=== PATIENT | female | born 2000 | race Caucasian/White ===

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

== ENCOUNTER 2019-02-17 08:23 | Inpatient (IN) | payer OTHER ==
[~2019-02-17] VITALS: Ht 165.1 cm; Wt 108.2 kg
--- NOTE | ~2019-02-17 | PR ---
[place], [place] PROGRESS NOTE NAME: ONEAL MENON UNIT #: [id number] ROOM: 519 DOCTOR: SHITAL GREY MD BIRTHDATE: [birth year] DOS: 02/19/2019 CARDIOLOGY PROGRESS NOTE REASON FOR VISIT: Sinus tachycardia and severe dyslipidemia. SUBJECTIVE: The patient is feeling better. Abdominal pain is better. Nausea is better. Denies any chest pain or palpitations. No PND, no orthopnea. No palpitations or dizziness. No neurologic symptoms. No bladder or bowel symptoms. REVIEW OF SYSTEMS: Review of the 8 systems negative except as mentioned above. RHYTHM STRIP: The patient is in sinus rhythm. No tachyarrhythmias. PHYSICAL EXAMINATION: VITAL SIGNS: Blood pressure 128/62, pulse 91, respiratory rate 16, weight 108 kg. GENERAL: The patient is alert, awake, in no acute distress. HEAD: Pupils are round and equal. No jaundice. NECK: Supple, no distended neck veins, no carotid bruit. CHEST: Symmetrical, nontender. LUNGS: Clear to auscultation bilaterally. HEART: Regular rhythm, no S3. No palpable thrills. ABDOMEN: Obese, nontender. Bowel sounds normal. EXTREMITIES: Showed nonpitting edema. Distal pulses palpable. SKIN: Warm and dry. No cyanosis, no clubbing. RECTAL: Deferred. NEUROLOGIC: The patient is alert with no focal neurologic deficit. REVIEW OF DIAGNOSTIC TESTS: Rhythm strips and labs reviewed. A 2D echo showed normal LV function, mild LV hypertrophy, EF 63%. IMPRESSION: 1. Mild sinus tachycardia, resolved. 2. Acute pancreatitis. 3. Severe dyslipidemia, hypertriglyceridemia, and also hypercholesterolemia. 4. Non-morbid obesity. 5. Gallstones. RECOMMENDATIONS: 1. Cardiology will sign off. 2. Again patient advised to see loan manager on an outpatient basis. 3. Discharge modification for diet, exercise, weight loss discussed. 4. Above recommendation discussed with the patient and her mom who is at bedside and all questions are answered. [place], [place] PROGRESS NOTE NAME: ONEAL MENON UNIT #: [id number] ROOM: 519 DOCTOR: SHITAL GREY MD BIRTHDATE: [birth year] SHITAL GREY MD CM:VINNY [id number] SHITAL GREY MD 02/20/19 0305 interface
--- NOTE | ~2019-02-17 | CON ---
[place], [place] REPORT OF CONSULTATION NAME: ONEAL MENON UNIT #: [id number] ROOM: 519 DOCTOR: CELESTINA SANTIAGO MD BIRTHDATE: [birth year] DOS: 02/19/2019 HISTORY OF PRESENT ILLNESS: A 18-year-old who has been found to have extreme hypertriglyceridemia and as a result pancreatitis. PAST MEDICAL HISTORY: Diabetes, morbid obesity, poor dietary habit. PAST SURGICAL HISTORY: None. FAMILY HISTORY: Noncontributory. SOCIAL HISTORY: Nonsmoker, nonalcohol consumer. ALLERGIES: Reviewed. MEDICATIONS: Reviewed. The patient has been started on Lopid 600 mg b.i.d. REVIEW OF SYSTEMS: HEENT: Denies double vision, blurred vision. RESPIRATORY: Denies shortness of breath. CARDIOVASCULAR: Denies chest pain. DIGESTIVE SYSTEM: Abdominal pain. PHYSICAL EXAMINATION: GENERAL: Obese patient for her age of 18, poor dietary habits. HEENT: Benign, otherwise. NECK: Supple, no thyromegaly. CHEST: Symmetric anatomy, equal expansion. HEART: Normal sinus rhythm, no gallop, no murmur. ABDOMEN: Soft. No hepato-organomegaly, obese. Bowel sounds present. EXTREMITIES: No cyanosis, no pedal edema. NEUROLOGIC: Alert and oriented to time, place, person. IMPRESSION: Pancreatitis secondary to most likely genetical disorder, extreme hypertriglyceridemia. PLAN: The patient needs to follow up with cathode ray tube assembler. I have advised her to abstain entirely from alcoholic beverages, nicotine products and greasy food and hopefully she will be following with her cathode ray tube assembler. At the present time, Lopid 600 mg b.i.d. as well as hydration. [place], [place] REPORT OF CONSULTATION NAME: ONEAL MENON UNIT #: [id number] ROOM: 519 DOCTOR: CELESTINA SANTIAGO MD BIRTHDATE: [birth year] CELESTINA SANTIAGO MD CM:CONSTR:REPORT OF CONSULTATION 58 02/20/19 8499 interface
--- NOTE | ~2019-02-17 | WRIGHTHP ---
[place], [place] PATIENT HISTORY AND PHYSICAL EXAM NAME: ONEAL MENON [facility] #: [id number] UNIT #: [id number] ROOM: [facility] DOCTOR: IRON PADILLA MD BIRTHDATE: [birth year] DOS: 02/17/2019 HISTORY OF PRESENT ILLNESS: The patient is a 18-year-old female with a past medical history of: 1. Morbid obesity with a BMI of 39.6. 2. Moderate protein calorie malnutrition. 3. Newly discovered type 2 diabetes mellitus. 4. Possible familial severe hyperlipidemia. The patient presented to the Emergency Department with complaints of severe upper abdominal pain starting last night and 2 episodes of vomiting. The patient's lipase level was elevated and she was found to have severe mixed type hyperlipidemia. No chest pain or shortness of breath, no GI or urinary symptoms otherwise. REVIEW OF SYSTEMS RESPIRATORY: No increased shortness of breath. GASTROINTESTINAL: Recurrent vomiting. CARDIOVASCULAR: No chest pain or palpitations. ALLERGIES: No known drug allergies. FAMILY HISTORY: Noncontributory. MEDICATIONS: The patient is not taking any medications at home. PHYSICAL EXAMINATION: GENERAL: The patient is morbidly obese, in no visible distress, morbid obesity. VITAL SIGNS: Blood pressure 139/84, heart rate ranging between 109- 123 beats per minute, temperature 98.2 degrees Fahrenheit. HEENT AND NECK: Exam within normal limits. CARDIOVASCULAR SYSTEM: Heart rate is regular in rate and rhythm. S1 and S2 normally audible. LUNGS: Clear to auscultation. ABDOMEN: Epigastric tenderness, no rigidity, guarding or rebound tenderness. EXTREMITIES: Without significant cyanosis or edema. LABORATORY DATA: CT scan of the abdomen and pelvis showing acute pancreatitis inflammation around the head of the pancreas. IMPRESSION: 1. Acute pancreatitis with elevation of lipase and CAT scan showing inflammation on the head of the pancreas. The patient is to be hydrated with normal saline. Dr. Fabian, the application penetration tester has been consulted to follow. I will repeat her lipase levels and amylase levels every morning. The patient's acute pancreatitis is probably secondary to severe hypertriglyceridemia. 2. Severe hypertriglyceridemia with level of 8223, being treated with Crestor as recommended. I have also consulted Cardiology to follow. 3. Severe mixed type hyperlipidemia, possibly familial with a cholesterol level of 762, triglycerides elevated above 8000, being treated with Crestor. [place], [place] PATIENT HISTORY AND PHYSICAL EXAM NAME: ONEAL MENON UNIT #: [id number] ROOM: [facility] DOCTOR: IRON PADLILA MD BIRTHDATE: [birth year] 4. Type 2 diabetes mellitus with blood sugar of 376, to be treated with insulin sliding scale. 5. Morbid obesity with a BMI of 39.6. The patient is to be followed by Dietary. IRON PADILLA MD CM:HISPHYS:PATIENT HISTORY AND PHYSICAL EXAMINATION 45 [phone] IRON PADILLA MD 02/17/191938 interface
--- NOTE | ~2019-02-17 | DS ---
[place], [place] DISCHARGE SUMMARY NAME: ONEAL MENON UNIT #: [id number] ROOM: 519 DOCTOR: IRON PADILLA MD BIRTHDATE: [birth year] DOS: 02/20/2019 DISCHARGE DIAGNOSES: 1. Morbid obesity. 2. Severe mixed hyperlipidemia, possibly familial. The patient to follow up with Dr. Gutierrez. 3. Acute pancreatitis secondary to hypertriglyceridemia. 4. Cholelithiasis. 5. Moderate protein-calorie malnutrition. 6. Type 2 diabetes mellitus. HOSPITAL COURSE: The patient presented to the Emergency Department with severe abdominal pains and was found to have acute pancreatitis and severe hypertriglyceridemia. The patient admitted and treated with Lopid and Crestor and kept n.p.o. and hydrated with normal saline. Pancreatic amylase has come down to normal and abdominal pains have completely resolved. The patient's nausea and vomiting has also resolved and she was seen by Gastroenterology as well as Cardiology. The patient is being discharged to home to follow up with pulverizer mill operator, Dr. Cherrie Gutierrez. The patient also requires liver enzymes and CPK to be checked within a month because she is being started on Lopid. Ultrasound of the gallbladder showing cholelithiasis. Low albumin level of 2.5 with moderate protein-calorie malnutrition. The patient was followed by Dietary. Type 2 diabetes mellitus newly discovered. The patient is on insulin now and blood sugars are ranging between 140-200 mostly much better controlled. LABORATORY DATA: Normal CBC now. Leukocytosis has resolved. Normal liver enzymes and lipase. The patient's albumin level was 2.8. Sodium 129. Normal liver enzymes. DISCHARGE MANAGEMENT: Lopid 600 mg b.i.d. No concentrated sweet diet versus 1800 ADA if the patient can tolerate it. Follow up with Dr. Gutierrez and Dr. Rodríguez within a week. [place], [place] DISCHARGE SUMMARY NAME: ONEAL MENON UNIT #: [id number] ROOM: [facility] DOCTOR: IRON PADILLA MD BIRTHDATE: [birth year] IRON PADILLA MD CM:DISCHARG [phone] IRON PADILLA MD 02/20/19 1215 interface
--- NOTE | ~2019-02-17 | PR ---
[place], [place] PROGRESS NOTE NAME: ONEAL MENON [facility] #: [id number] UNIT #: [id number] ROOM: 519 DOCTOR: IRON PADILLA MD BIRTHDATE: [birth year] DOS: SUBJECTIVE: The patient is still with upper abdominal pains, some nausea and vomiting. OBJECTIVE: GENERAL APPEARANCE: The patient is alert and oriented x 3, in no visible distress. VITAL SIGNS: Blood pressure 138/75, heart rate of 101 beats per minute, breathing 18 times per minute, temperature 98.6 degrees Fahrenheit. HEENT AND NECK: Exam within normal limits. CARDIOVASCULAR SYSTEM: Heart rate is regular in rate and rhythm. S1 and S2 normally audible. LUNGS: Clear to auscultation. ABDOMEN: Morbid obesity and epigastric tenderness on palpation. Soft. No obvious organomegaly. Bowel sounds are present. EXTREMITIES: Without significant cyanosis or edema. IMPRESSION: 1. The patient with acute pancreatitis secondary to severe hypertriglyceridemia being treated with Crestor and hydration with normal saline. I will keep the patient n.p.o. Dr. Fabian, the real estate intern, is on consult. 2. Moderate protein-calorie malnutrition, albumin level of 2.8. The patient to work with Dietary. 3. Type 2 diabetes mellitus with elevated blood sugars being covered with insulin now. I will start her on Lantus insulin 20 units daily. 4. Severe mixed type hyperlipidemia, possibly familial. Endocrinology consulted. 5. Lipase levels are staying level. No significant increase. IRON PADILLA MD CM:PNTRANS [phone] IRON PADILLA MD 02/19/19 0050 interface
--- NOTE | ~2019-02-17 | CON ---
[place], [place] REPORT OF CONSULTATION NAME: ONEAL MENON UNIT #: [id number] ROOM: 519 DOCTOR: SHITAL GREY MD BIRTHDATE: [birth year] DOS: 02/18/2019 REASON FOR CONSULTATION: Sinus tachycardia. HISTORY OF PRESENT ILLNESS: This is a 18-year-old patient with history of morbid obesity, newly-diagnosed diabetes who was admitted for upper abdominal pain started the night before and also 2 episodes of vomiting. She was found to have elevated lipase and extremely high triglycerides and admitted for possible pancreatitis. She was noted to have sinus tachycardia, hence Cardiology was consulted. She denies any chest pain or palpitation. No dizziness or syncope. No fever and chills. She did have some nausea and vomiting prior to admission, but no PND, no orthopnea, no edema. No neurologic symptoms, no genitourinary symptoms, no urinary symptoms. The patient does not smoke or drink, does not consume excessive caffeine. REVIEW OF SYSTEMS: Review of 10 systems negative except as mentioned above. PAST MEDICAL HISTORY: 1. Morbid obesity. 2. Type 2 diabetes. 3. Dyslipidemia with severe hypertriglyceridemia. SURGICAL HISTORY: No significant surgical history. PAST FAMILY HISTORY: Noncontributory. SOCIAL HISTORY: The patient does not smoke or drink, does not use illicit drugs. ALLERGIES: Reviewed. HOME MEDICATIONS: Reviewed. PHYSICAL EXAMINATION: VITAL SIGNS: Blood pressure 128/83, pulse 106, respiratory rate is 20, weight 108.2 kg, BMI 39.1. GENERAL: Alert, comfortable, in no acute distress. HEENT: Pupils are round and equal. No jaundice. Tongue was moist. NECK: Supple, no distended neck veins, no carotid bruit. CHEST: Symmetrical, nontender. LUNGS: Clear to auscultation bilaterally. HEART: Regular rhythm, no S3, no palpable thrills. ABDOMEN: Morbidly obese. Bowel sounds normal. Mild epigastric tenderness. EXTREMITIES: Showed no edema. Distal pulses palpable. SKIN: Warm and dry. No cyanosis, no clubbing. RECTAL: Deferred. GENITOURINARY: Deferred. NEUROLOGIC: The patient is alert with no focal neurologic deficit. REVIEW OF THE DIAGNOSTIC TESTS: EKG, labs, and imaging studies reviewed. The [place], [place] REPORT OF CONSULTATION NAME: ONEAL MENON UNIT #: [id number] ROOM: [facility] DOCTOR: QUE RODAS,SHITAL BIRTHDATE: [birth year] patient had extremely elevated triglycerides and total cholesterol as well as her lipase. Hemoglobin unremarkable. Chemistry unremarkable except glucose and calcium. IMPRESSION: 1. Borderline sinus tachycardia, asymptomatic, multifactorial due to her nausea, abdominal pain, pancreatitis. 2. Acute pancreatitis. 3. Moderate obesity. 4. Severe hypertriglyceridemia as well as hypercholesterolemia. 5. Diabetes type 2. RECOMMENDATIONS: 1. Heart rates and blood pressures are stable. I would recommend low-dose beta krista to see if her heart rate sustains and above 110, low-dose beta krista, metoprolol 12.5 mg twice a day. 2. Check 2D echo for LV function and valvular function. 3. Recommend outpatient followup with her fieldwork coordinator after discharge due to her severe dyslipidemia. 4. Gastroenterology consult for her acute pancreatitis. 5. The patient advised for gradual weight loss and exercise as she tolerates. Above treatment plan discussed with the patient and her family at bedside, and all questions were answered. SHITAL GREY MD CM:CONSTR:REPORT OF CONSULTATION 22 03/16/19 0718 interface
--- NOTE | ~2019-02-17 | PR ---
[place], [place] PROGRESS NOTE NAME: [facility] #: [id number] UNIT #: [id number] ROOM: 519 DOCTOR: IRON PADILLA MD BIRTHDATE: [birth year] DOS: 02/19/2019 SUBJECTIVE: The patient is feeling much better. Abdominal pains have resolved. No nausea or vomiting anymore. OBJECTIVE: VITAL SIGNS: Blood pressure 128/62, heart rate of 91 beats per minute, breathing 16-18 times per minute, temperature 98.1 degrees Fahrenheit. GENERAL APPEARANCE: Morbid obesity. The patient is alert and oriented x 3, in no visible distress. HEENT AND NECK: Exam within normal limits. CARDIOVASCULAR SYSTEM: Heart rate is regular in rate and rhythm. S1 and S2 normally audible. LUNGS: Clear to auscultation. ABDOMEN: Soft, nontender. No obvious organomegaly. Bowel sounds are present. EXTREMITIES: Without significant cyanosis or edema. IMPRESSION: 1. The patient with acute pancreatitis, resolved. Amylase and lipase levels, lipase reduced to normal today. I will start her on a low fat diet to see how she tolerates it. 2. Moderate protein calorie malnutrition. The patient working with Dietary. 3. Leukocytosis, improving with treatment. White cell count reduced to 13,000 today. Apparently was from pancreatitis. 4. Severe mixed type hyperlipidemia, possibly familial, to be further evaluated and treated by nurse private duty as an outpatient who has been consulted. 5. Type 2 diabetes mellitus. Blood sugars being monitored and treated and ranging between 175-200. 6. The patient with secondary pancreatitis to severe hypertriglyceridemia, being treated with Crestor. Dr. Fabian, the wet sander is following. IRON PADILLA MD CM:PNTRANS [phone] IRON PADILLA MD 02/20/19 0204 interface
[~2019-02-17 08:23] MED LIST changes: +CLINDAMYCIN150 MG PO
[2019-02-17 08:25] VITALS: BP 148/97
[2019-02-17 08:59] LABS: BILIRUBIN 1+ (NEGATIVE); BLOOD 3+ (NEGATIVE); CLARITY SL CLOUDY (CLEAR); COLOR YELLOW (YELLOW); GLUCOSE 3+ (NEGATIVE); KETONE 3+ (NEGATIVE); LEUKO ESTERASE NEGATIVE (NEGATIVE); NITRITE NEGATIVE (NEGATIVE); SPECIFIC GRAVITY 1.025 (1.005-1.030); UROBILINOGEN 0.2 E.U./dl (0.2-1.0)
[2019-02-17 09:06] LABS: BASO # 0.1 10*3/uL (0.0-0.1); BASO % 0.8 % (0.0-1.0); EOS # 0.1 10*3/uL (0.0-0.4); EOS % 0.8 % (1.0-4.0); HEMATOCRIT 41.8 % (37.0-47.0); LYMPH # 2.1 10*3/uL (1.3-4.4); MEAN CELL VOLUME 82.8 fl (81.0-99.0); MEAN PLATELET VOLUME 9.7 fl (9.6-12.3); MONO # 0.8 10*3/uL (0.1-1.0); MONO % 4.7 % (3.0-9.0); NEUT # 12.9 10*3/uL (2.3-7.9); NEUT % 80.3 % (47.0-73.0); PLATELET COUNT AUTOMATED 379 10*3/uL (130-400); RED BLOOD COUNT 5.05 10*6/uL (4.10-5.10); RED CELL DISTRI WIDTH 12.5 % (0-14.5)
[2019-02-17 09:38] LABS: HEMOGLOBIN 14.6 g/dl (12.0-16.0); MEAN CORPUSCULAR HGB 28.9 pg (27.0-31.0); MEAN CORPUSCULAR HGB CONC 34.9 g/dl (33.0-37.0)
[2019-02-17 09:44] LABS: BACTERIA 1+; EPITHELIAL CELLS 20-30; RBC 31-40 rbc/hpf (0-2)
[2019-02-17 09:59] LABS: PLATELET SUFFICIENCY NORMAL (NORMAL); TOTAL CELLS COUNTED 100 #CELLS; VACUOLATION OF NEUTROPHILS SLIGHT
[2019-02-17 10:04] LABS: CHLORIDE 92 mmol/L (98-107); CREATININE 0.68 mg/dL (0.55-1.02); POTASSIUM 3.8 mmol/L (3.5-5.1); SODIUM 129 mmol/L (136-145)
[2019-02-17 10:22] LABS: CHOLESTEROL 762 mg/dL (<200); HDL CHOLESTEROL 63 mg/dl (40-60)
[2019-02-17 10:23] LABS: TRIGLYCERIDES 8223 mg/dl (<150)
[2019-02-17 10:26] LABS: ALBUMIN 2.8 gm/dl (3.1-4.5); ALKALINE PHOSPHATASE 73 U/L (45-117)
[2019-02-17 10:28] LABS: BUN 7 mg/dl (7-24)
[2019-02-17 10:33] LABS: TOTAL PROTEIN 8.5 gm/dL (6.4-8.2)
[2019-02-17 10:35] LABS: LIPASE 661 U/L (73-393)
[2019-02-17 10:40] VITALS: BP 136/90
[2019-02-17 11:05] LABS: SGOT/AST 106 IU/L (3-35)
--- NOTE | 2019-02-17 11:27 | NUR ---
PT REFUSES AN IV INSERTION. BECOMES VERY TEARFUL AND PULLS HER ARM AWAY THREE TIMES AND WILL NOT ALLOW IV INSERTION AT THIS TIME. PT ALSO REQUESTS TO REMAIN FULLY CLOTHED FOR HER ADMISSION. SHE DENIES ANY WOUNDS ANY LOCATIONS.
[2019-02-17 11:45] VITALS: BP 144/95
[2019-02-17 12:00] VITALS: BP 144/98
--- NOTE | 2019-02-17 12:20 | NUR ---
Dr. Shah notified of patients arrival to unit. Labs, home medications and pactients current health status reviewed. See new orders.
--- NOTE | 2019-02-17 12:50 | NUR ---
MEDICATED WITH IV DILAUDID ORDERED PER PT REQUEST FOR C/O UPPER ABDOMINAL/DISTENTION PAIN RATED 8/10.
--- NOTE | 2019-02-17 12:58 | NUR ---
Left message with Dr. Fabian regarding consult for abdominal pain pancreatitis cholelithiasis.
--- NOTE | 2019-02-17 13:01 | NUR ---
Left a message with [facility] regarding consult for hyperlipedemia.
[2019-02-17 16:06] VITALS: BP 139/84
--- NOTE | 2019-02-17 17:05 | NUR ---
A 18, admitted to 5E, under the services of Dr. VALERIE RODAS,IRON Klein with a diagnosis of pancreatitis cholyliathisis hyperlipdemia. Chief complaint is abdominal pain. Patient arrived via stretcher from ER. Monitor applied. Initial assessment completed. Vital signs taken and recorded. DR. VALERIE RODAS,IRON Klein notified of admission to the unit. Orders received. See assessment for past medical history, medications and allergies. Patient and/or family oriented to unit. [address] visitation policy reviewed. Clothing/patient valuable form completed. DHAVAL NUNES
[2019-02-17 20:00] VITALS: BP 135/77
[2019-02-18] VITALS: BP 131/62
[2019-02-18 06:20] LABS: BASO # 0.1 10*3/uL (0.0-0.1); BASO % 0.5 % (0.0-1.0); EOS # 0.2 10*3/uL (0.0-0.4); EOS % 0.9 % (1.0-4.0); HEMATOCRIT 40.2 % (37.0-47.0); HEMOGLOBIN 14.3 g/dl (12.0-16.0); LYMPH # 2.6 10*3/uL (1.3-4.4); LYMPH % 14.6 % (27.0-41.0); MEAN CELL VOLUME 83.9 fl (81.0-99.0); MEAN CORPUSCULAR HGB 29.9 pg (27.0-31.0); MEAN CORPUSCULAR HGB CONC 35.6 g/dl (33.0-37.0); MEAN PLATELET VOLUME 9.5 fl (9.6-12.3); MONO # 0.8 10*3/uL (0.1-1.0); MONO % 4.8 % (3.0-9.0); NEUT # 13.9 10*3/uL (2.3-7.9); NEUT % 78.5 % (47.0-73.0); PLATELET COUNT AUTOMATED 409 10*3/uL (130-400); RED BLOOD COUNT 4.79 10*6/uL (4.10-5.10); RED CELL DISTRI WIDTH 12.6 % (0-14.5); WHITE BLOOD COUNT 17.7 10*3/uL (4.8-10.8)
[2019-02-18 06:56] LABS: LIPASE 778 U/L (73-393)
[2019-02-18 08:19] VITALS: BP 128/83
--- NOTE | 2019-02-18 10:43 | NUR ---
Dr. Fabian returned call regarding consult. Labs, US of gallbladder and CT results were reviewed along with current treatment and medications. Lopid was ordered, diet changed to clear liquid and hepaic function panel ordered for next two days. See new orders.
--- NOTE | 2019-02-18 12:58 | NUR ---
Zofran given for patient c/o nausea and vomitting. Patient had one episode of unmeasurable emesis and 1 episode of diarrhea. Will continue to monitor.
--- NOTE | 2019-02-18 13:25 | NUR ---
Dilaudid given for patient c/o abdominal pain through out the entire left and right UQ that is also tender with palpation. Patient has active bowel sounds, passing gas and Zofran is effective. No c/o nausea or vomitting.
--- NOTE | 2019-02-18 14:15 | NUR ---
Dilaudid effective. Patient comfortable no signs of distress.
[2019-02-18 15:42] VITALS: BP 138/75
--- NOTE | 2019-02-18 16:40 | NUR ---
Left a message with [facility] regarding consult for hyperlipidemia and DM. Answering service stated they do not have physicians contact message. Physician will receive message in morning.
--- NOTE | 2019-02-18 19:02 | NUR ---
Dilaudid given for c/o abdominal pain. Patient rates pain 7/10.
[2019-02-19] VITALS: BP 125/61
--- NOTE | 2019-02-19 05:45 | NUR ---
PATIENT VOICES CONCERNS OF PAIN IN ABDOMEN 03/14. NO FURTHER SIGNS OR SYMPTOMS OF DISTRESS. PRN DIALUDID GIVEN. PRN ZOFRAN GIVEN D/T NAUSEA DIALUDID CAUSES IN PATIENT. WILL REASSESS
--- NOTE | 2019-02-19 06:30 | NUR ---
PATIENT'S PAIN LEVEL ACCEPTABLE LEVEL 2/10. NO SIGNS OR SYMPTOMS OF DISTRESS.
[2019-02-19 07:08] LABS: BASO # 0.1 10*3/uL (0.0-0.1); BASO % 0.7 % (0.0-1.0); EOS # 0.3 10*3/uL (0.0-0.4); EOS % 2.3 % (1.0-4.0); HEMOGLOBIN 13.3 g/dl (12.0-16.0); LYMPH # 2.4 10*3/uL (1.3-4.4); LYMPH % 18.5 % (27.0-41.0); MEAN CELL VOLUME 86.4 fl (81.0-99.0); MEAN CORPUSCULAR HGB 28.7 pg (27.0-31.0); MEAN CORPUSCULAR HGB CONC 33.3 g/dl (33.0-37.0); MEAN PLATELET VOLUME 9.6 fl (9.6-12.3); MONO # 0.8 10*3/uL (0.1-1.0); MONO % 6.1 % (3.0-9.0); NEUT # 9.4 10*3/uL (2.3-7.9); NEUT % 71.9 % (47.0-73.0); PLATELET COUNT AUTOMATED 316 10*3/uL (130-400); RED BLOOD COUNT 4.63 10*6/uL (4.10-5.10); RED CELL DISTRI WIDTH 12.9 % (0-14.5)
[2019-02-19 07:24] LABS: ALBUMIN 2.5 gm/dl (3.1-4.5); ALKALINE PHOSPHATASE 74 U/L (45-117); LIPASE 255 U/L (73-393); TOTAL PROTEIN 8.9 gm/dL (6.4-8.2)
[2019-02-19 07:30] LABS: BILIRUBIN, DIRECT < 0.1 mg/dL (0.0-0.2)
[2019-02-19 07:44] LABS: SGOT/AST 71 IU/L (3-35); SGPT/ALT 33 U/L (12-78)
[2019-02-19 08:00] VITALS: BP 128/62
--- NOTE | 2019-02-19 09:00 | NUR ---
Counter Stitcher in to talk to patient. Patient states lives at home with her grandmother. There are 3-4 steps in the home. Physician: Dr. Edmond Rodríguez Pharmacy: [facility] in [place] Home health services: none Patient's level of ADLs: INDEPENDENT Patient has working utilities: yes DME: none Follow-up physician's appointment after d/c: she prefers to make her own follow up appt after discharge Does patient want to access PORTAL?: no Discharge plan discussed with patient and grandmother who is at the bedside. She lives at home with her grandmother. She is independent in her ADLs and ambulation. Discussed home health care services and she denies any home needs at this time. When medically stable she will be discharged to home. KRISTINA MENON
--- NOTE | 2019-02-19 15:02 | NUR ---
Nutrition Service Support Note: Pt is a 18 year old female recently dx with T2DM (pt reported she was dx 02/17/19). I followed up this afternoon with her, bringing the ADA 1800 calorie diet copy with me and discussing with her what this entails. She admits to having poor eating habits but states she does have access to healthier options. We dicussed CHO counting and that consuming a steady intake of calories is better for controlling BG levels than not eating for prolonged periods of time. I had her go through the packet with me, explaining back to me examples of what a balanced day of eating looks like. She has a good understanding. [employer] C[employer] Student Hugh Miguel
[2019-02-19 16:00] VITALS: BP 138/94
[2019-02-19 20:00] VITALS: BP 142/82
--- NOTE | 2019-02-19 23:00 | NUR ---
OBTAINED PATIENT FROM [facility]ALIE[facility]. PATIENT IS RESTING IN BED, VOICED NO COMPLAINTS. NO DISTRESS NOTED, RESP ARE ERND ON ROOM AIR. BED IS LOCKED IN LOWEST POSITION. CALL LIGHT WITHIN REACH
[2019-02-20] VITALS: BP 145/72
[2019-02-20 06:57] LABS: BASO # 0.1 10*3/uL (0.0-0.1); BASO % 0.5 % (0.0-1.0); EOS # 0.3 10*3/uL (0.0-0.4); EOS % 2.9 % (1.0-4.0); HEMATOCRIT 39.8 % (37.0-47.0); LYMPH # 1.9 10*3/uL (1.3-4.4); LYMPH % 19.8 % (27.0-41.0); MEAN CELL VOLUME 86.9 fl (81.0-99.0); MEAN CORPUSCULAR HGB 28.4 pg (27.0-31.0); MEAN CORPUSCULAR HGB CONC 32.7 g/dl (33.0-37.0); MEAN PLATELET VOLUME 9.4 fl (9.6-12.3); MONO # 0.5 10*3/uL (0.1-1.0); MONO % 5.4 % (3.0-9.0); NEUT # 6.9 10*3/uL (2.3-7.9); PLATELET COUNT AUTOMATED 335 10*3/uL (130-400); RED BLOOD COUNT 4.58 10*6/uL (4.10-5.10); RED CELL DISTRI WIDTH 12.7 % (0-14.5); WHITE BLOOD COUNT 9.7 10*3/uL (4.8-10.8)
[2019-02-20 07:26] LABS: ALBUMIN 2.4 gm/dl (3.1-4.5); BUN 8 mg/dl (7-24); CHLORIDE 101 mmol/L (98-107); POTASSIUM 3.5 mmol/L (3.5-5.1); SODIUM 136 mmol/L (136-145)
[2019-02-20 07:30] LABS: ALKALINE PHOSPHATASE 65 U/L (45-117); BILIRUBIN, DIRECT < 0.1 mg/dL (0.0-0.2); CREATININE 0.52 mg/dL (0.55-1.02); LIPASE 276 U/L (73-393); SGOT/AST 94 IU/L (3-35); SGPT/ALT 41 U/L (12-78); TOTAL PROTEIN 8.1 gm/dL (6.4-8.2)
[2019-02-20 08:00] VITALS: BP 145/85
[2019-02-20] MEDS ORDERED: GEMFIBROZIL600 MG PO (11:02)
--- NOTE | 2019-02-20 11:45 | NUR ---
Discharge instructions reviewed with patient/family. Patient receptive and verbalizes understanding. Follow-up care arranged. Written instructions given to patient/family. PATIENT AMBULATED FROM FLOOR WITH FAMILY MEMBER. NO S/S OF DISTRESS. NATALIE NEGRO
== END 2019-02-20 11:45 | disposition home or self-care (01) | DRG 439 ==
LOC: ED 08:23 → EDHOLD 11:22 → 5E 11:22
PROVIDERS: Emergency Medicine; Internal Medicine Gastroenterology; ADMIT Internal Medicine
DX: K85.80 Other acute pancreatitis without necrosis or infection (principal); E44.0 Moderate protein-calorie malnutrition; E11.9 Type 2 diabetes mellitus without complications; E78.2 Mixed hyperlipidemia; E66.01 Morbid (severe) obesity due to excess calories; E78.1 Pure hyperglyceridemia; K80.80 Other cholelithiasis without obstruction; E78.00 Pure hypercholesterolemia, unspecified; D72.829 Elevated white blood cell count, unspecified; Z68.39 Body mass index [BMI] 39.0-39.9, adult

== ENCOUNTER 2019-08-27 14:39 | Emergency (ER) | payer OTHER ==
[~2019-08-27] VITALS: Ht 7010 cm
[~2019-08-27 14:39] MED LIST changes: +GEMFIBROZIL600 MG PO
[2019-08-27 14:42] VITALS: BP 150/90
[2019-08-27] MEDS ORDERED: DOXYCYCLINE100 M3 PO (15:48)
== END 2019-08-27 15:52 | disposition home or self-care (01) ==
LOC: ED 14:39
DX: N61.1 Abscess of the breast and nipple (principal); E11.9 Type 2 diabetes mellitus without complications; Z91.041 Radiographic dye allergy status

== ENCOUNTER 2019-08-28 16:11 | Emergency (ER) | payer OTHER ==
[~2019-08-28] VITALS: Ht 165.1 cm; Wt 104.3 kg
[~2019-08-28 16:11] MED LIST changes: +DOXYCYCLINE100 M3 PO
[2019-08-28 17:33] LABS: BASO # 0.1 10*3/uL (0.0-0.1); BASO % 0.5 % (0.0-1.0); EOS # 0.2 10*3/uL (0.0-0.4); EOS % 1.8 % (1.0-4.0); HEMOGLOBIN 14.2 g/dl (12.0-16.0); LYMPH # 2.2 10*3/uL (1.3-4.4); LYMPH % 17.8 % (27.0-41.0); MEAN CELL VOLUME 83.8 fl (81.0-99.0); MEAN CORPUSCULAR HGB CONC 34.6 g/dl (33.0-37.0); MEAN PLATELET VOLUME 9.5 fl (9.6-12.3); MONO # 0.6 10*3/uL (0.1-1.0); MONO % 4.6 % (3.0-9.0); NEUT % 74.6 % (47.0-73.0); PLATELET COUNT AUTOMATED 378 10*3/uL (130-400); RED BLOOD COUNT 4.89 10*6/uL (4.10-5.10); RED CELL DISTRI WIDTH 12.1 % (0-14.5); WHITE BLOOD COUNT 12.1 10*3/uL (4.8-10.8)
[2019-08-28 17:49] LABS: ALBUMIN 3.1 gm/dl (3.1-4.5); ALKALINE PHOSPHATASE 62 U/L (45-117); BUN 6 mg/dl (7-24); CHLORIDE 105 mmol/L (98-107); CREATININE 0.54 mg/dL (0.55-1.02); SGOT/AST 14 IU/L (3-35); SGPT/ALT 17 U/L (12-78); SODIUM 136 mmol/L (136-145); TOTAL PROTEIN 7.9 gm/dL (6.4-8.2)
[2019-08-28 18:44] VITALS: BP 147/84
== END 2019-08-28 18:57 | disposition left against medical advice (07) ==
LOC: ED 16:11
PROVIDERS: Physician Assistant
DX: N61.1 Abscess of the breast and nipple (principal); R11.0 Nausea; Z91.041 Radiographic dye allergy status; Z79.2 Long term (current) use of antibiotics

== ENCOUNTER 2019-09-21 08:54 | Inpatient (IN) | payer OTHER ==
[~2019-09-21] VITALS: Ht 165.1 cm; Wt 109.9 kg
[2019-09-21 09:01] VITALS: BP 150/88
[2019-09-21 09:24] LABS: BILIRUBIN NEGATIVE (NEGATIVE); BLOOD NEGATIVE (NEGATIVE); CLARITY SL CLOUDY (CLEAR); COLOR YELLOW (YELLOW); GLUCOSE 2+ (NEGATIVE); KETONE 2+ (NEGATIVE); LEUKO ESTERASE NEGATIVE (NEGATIVE); NITRITE NEGATIVE (NEGATIVE); SPECIFIC GRAVITY >= 1.030 (1.005-1.030); UROBILINOGEN 0.2 E.U./dl (0.2-1.0)
--- NOTE | 2019-09-21 09:37 | NUR ---
KATHY PUSHED BY KADEN HAM.
[2019-09-21 09:40] LABS: BASO # 0.1 10*3/uL (0.0-0.1); BASO % 0.7 % (0.0-1.0); EOS # 0.2 10*3/uL (0.0-0.4); EOS % 1.1 % (1.0-4.0); HEMATOCRIT 41.6 % (37.0-47.0); HEMOGLOBIN 14.9 g/dl (12.0-16.0); LYMPH # 1.8 10*3/uL (1.3-4.4); MEAN CELL VOLUME 83.4 fl (81.0-99.0); MEAN CORPUSCULAR HGB 29.9 pg (27.0-31.0); MEAN CORPUSCULAR HGB CONC 35.8 g/dl (33.0-37.0); MEAN PLATELET VOLUME 9.7 fl (9.6-12.3); MONO # 0.9 10*3/uL (0.1-1.0); MONO % 5.3 % (3.0-9.0); NEUT # 13.2 10*3/uL (2.3-7.9); NEUT % 81.4 % (47.0-73.0); PLATELET COUNT AUTOMATED 402 10*3/uL (130-400); RED BLOOD COUNT 4.99 10*6/uL (4.10-5.10); RED CELL DISTRI WIDTH 12.3 % (0-14.5); WHITE BLOOD COUNT 16.2 10*3/uL (4.8-10.8)
[2019-09-21 09:47] LABS: EPITHELIAL CELLS 15-20; MUCOUS 1+
[2019-09-21 10:17] LABS: ALBUMIN 3.2 gm/dl (3.1-4.5); ALKALINE PHOSPHATASE 66 U/L (45-117); BUN 7 mg/dl (7-24); CHLORIDE 101 mmol/L (98-107); CREATININE 0.68 mg/dL (0.55-1.02); LIPASE 691 U/L (73-393); POTASSIUM 4.2 mmol/L (3.5-5.1); SGOT/AST 22 IU/L (3-35); SGPT/ALT 25 U/L (12-78); SODIUM 133 mmol/L (136-145); TOTAL PROTEIN 8.4 gm/dL (6.4-8.2)
[2019-09-21 10:20] LABS: BETA-HCG, QUANT < 1.0 mIU/mL (1-3)
[2019-09-21 11:49] VITALS: BP 136/85
--- NOTE | 2019-09-21 11:51 | NUR ---
PT C/O BACK PAIN RATES AT 7/10 ON PAIN SCALE. STATES HER ABD HURT A LITTLE BIT BUT NOT BAD HER BACK.
[2019-09-21 12:17] VITALS: BP 151/108; BP 160/88
--- NOTE | 2019-09-21 12:17 | NUR ---
Time: 1216 A 19 year old FEMALE admitted to 5E under services of DR. TERRELL RODAS,SUDHAKAR. Pt. arrived via wheel chair from ER. Chief complaint: ABDOMINAL PAIN, NAUSEA.. VANESA SMITH
--- NOTE | 2019-09-21 12:25 | NUR ---
DR. TEJADA WAS IN TO SEE PATIENT IN THE ER AND REQUESTED THE PATIENT TO HAVE AN ERCP, STATES SHE WOULD BE PUTTING THE ORDER IN. THIS WAS REPORTED TO THE EMS HELICOPTER PILOT BY TIANNA Tijerina NP. ALSO WAS PASSED ON IN REPORT TO
--- NOTE | 2019-09-21 13:11 | NUR ---
CALL PLACED TO DR. SANTIAGO, ADVISED OF CONSULTS, LABS REVIEWED, ORDER RECEIVED FOR SERUM TRYGLICERIDES, AND TO CALL HIM BACK. ALSO ADVISED DR. TEJADA I WAS UNABLE TO VERIFY HOME MEDICATIONS, REQUESTED PATIENTS GRANDMOTHER BRING THEM IN.
--- NOTE | 2019-09-21 14:30 | NUR ---
PER TRANSPORT PATIENT HAD EMESIS AFTER RETURNING FROM MRI, MEDICATED WITH ZOFRAN 8MG ORDERED IV.
[2019-09-21 16:00] VITALS: BP 131/76
[2019-09-21 20:00] VITALS: BP 133/72
--- NOTE | 2019-09-21 23:00 | NUR ---
PATIENT MEDICATED WITH ZOFRAN FOR PREVENATIVE MEASURES, BECOMES NAUSEOUS WHEN TAKING PAIN MEDICATIONS. WILL CONTINUE TO MONITOR
[2019-09-22] VITALS: BP 128/75
[2019-09-22 06:38] LABS: BASO # 0.1 10*3/uL (0.0-0.1); BASO % 0.5 % (0.0-1.0); EOS # 0.2 10*3/uL (0.0-0.4); EOS % 0.9 % (1.0-4.0); HEMATOCRIT 40.5 % (37.0-47.0); HEMOGLOBIN 13.7 g/dl (12.0-16.0); LYMPH # 1.7 10*3/uL (1.3-4.4); LYMPH % 7.6 % (27.0-41.0); MEAN CELL VOLUME 84.4 fl (81.0-99.0); MEAN CORPUSCULAR HGB 28.5 pg (27.0-31.0); MEAN CORPUSCULAR HGB CONC 33.8 g/dl (33.0-37.0); MEAN PLATELET VOLUME 9.9 fl (9.6-12.3); MONO # 1.3 10*3/uL (0.1-1.0); NEUT # 18.6 10*3/uL (2.3-7.9); NEUT % 84.5 % (47.0-73.0); PLATELET COUNT AUTOMATED 373 10*3/uL (130-400); RED CELL DISTRI WIDTH 12.5 % (0-14.5)
--- NOTE | 2019-09-22 06:47 | NUR ---
PATIENT MEDICATED WITH ZOFRAN FOR C/O NAUSEA. WILL MONITOR
[2019-09-22 06:49] LABS: ALBUMIN 2.7 gm/dl (3.1-4.5); BUN 4 mg/dl (7-24); CHLORIDE 101 mmol/L (98-107); CHOLESTEROL 247 mg/dL (<200); HDL CHOLESTEROL 35 mg/dl (40-60); LIPASE 348 U/L (73-393); SGOT/AST 17 IU/L (3-35); SODIUM 132 mmol/L (136-145)
[2019-09-22 06:54] LABS: ALKALINE PHOSPHATASE 68 U/L (45-117)
[2019-09-22 06:56] LABS: TRIGLYCERIDES 1796 mg/dl (<150)
--- NOTE | 2019-09-22 07:05 | NUR ---
ARRIVED ON SHIFT, INTRODUCED TO PATIENT, SHE OPENED EYES IN RESPONSE, WHITE BOARD UPDATED. EDUCATED PA ON Q2H ORAL CARE. NO FAMILY PRESENT AT THIS TIME.
[2019-09-22 08:00] VITALS: BP 113/47
--- NOTE | 2019-09-22 08:00 | NUR ---
ARRIVED ON SHIFT, INTRODUCED TO PATIENT, NO NEEDS VOICED AT THIS TIME. WHITE BOARD UPDATED.
--- NOTE | 2019-09-22 08:14 | NUR ---
Shift chart check completed.
[2019-09-22 08:26] LABS: SGPT/ALT 25 U/L (12-78)
--- NOTE | 2019-09-22 08:46 | NUR ---
Shift chart check completed.
--- NOTE | 2019-09-22 09:52 | NUR ---
CALL PLACED TO DR. SANTIAGO, REVIEWED LABS, ORDER RECEIVED TO CHANGE DIET TO CLEAR KLIQUIDS.
[2019-09-22 16:00] VITALS: BP 129/71
--- NOTE | 2019-09-22 16:01 | NUR ---
PATIENT C/O NAUSEA, MEDICATED WITH ZOFRAN 8MG IV ORDERED.
--- NOTE | 2019-09-22 23:49 | NUR ---
PATIENT MEDICATED WITH ZOFRAN FOR C/O NAUSEA. WILL MONITOR
[2019-09-23] VITALS: BP 120/72
[2019-09-23 06:43] LABS: BASO # 0.1 10*3/uL (0.0-0.1); BASO % 0.6 % (0.0-1.0); EOS # 0.4 10*3/uL (0.0-0.4); EOS % 2.9 % (1.0-4.0); HEMATOCRIT 42.4 % (37.0-47.0); HEMOGLOBIN 13.7 g/dl (12.0-16.0); LYMPH # 2.2 10*3/uL (1.3-4.4); LYMPH % 16.8 % (27.0-41.0); MEAN CELL VOLUME 87.4 fl (81.0-99.0); MEAN CORPUSCULAR HGB 28.2 pg (27.0-31.0); MEAN CORPUSCULAR HGB CONC 32.3 g/dl (33.0-37.0); MEAN PLATELET VOLUME 9.6 fl (9.6-12.3); MONO # 0.8 10*3/uL (0.1-1.0); MONO % 5.6 % (3.0-9.0); NEUT # 9.8 10*3/uL (2.3-7.9); NEUT % 73.4 % (47.0-73.0); PLATELET COUNT AUTOMATED 399 10*3/uL (130-400); RED BLOOD COUNT 4.85 10*6/uL (4.10-5.10); RED CELL DISTRI WIDTH 12.8 % (0-14.5); WHITE BLOOD COUNT 13.3 10*3/uL (4.8-10.8)
[2019-09-23 07:01] LABS: ALBUMIN 2.7 gm/dl (3.1-4.5); BUN 6 mg/dl (7-24); CHLORIDE 103 mmol/L (98-107); LIPASE 202 U/L (73-393); POTASSIUM 3.5 mmol/L (3.5-5.1); SODIUM 137 mmol/L (136-145)
[2019-09-23 07:12] LABS: ALKALINE PHOSPHATASE 73 U/L (45-117); CREATININE 0.64 mg/dL (0.55-1.02); SGOT/AST 17 IU/L (3-35); SGPT/ALT 21 U/L (12-78); TOTAL PROTEIN 8.4 gm/dL (6.4-8.2)
[2019-09-23 08:00] VITALS: BP 124/80
--- NOTE | 2019-09-23 08:20 | NUR ---
SLEEPING IN BED, AWAKENS EASILY. RESP-EASY AND REGULAR. IVF INFUSING WITH NO PROBLEM. NO C/O AT THIS TIME. CALL LIGHT IN REACH. SEE SHIFT ASSESSMENT.
--- NOTE | 2019-09-23 09:10 | NUR ---
TOLERATED ROUTINE MED WITH NO PROBLEM. CALL LIGHT IN REACH.
--- NOTE | 2019-09-23 09:15 | NUR ---
CALLED DR. TEJADA MADE AWARE PT HAS ALLERGY TO IODINE. PE RHER OK TO DO CT WITHOUT CONTRAST.
--- NOTE | 2019-09-23 10:00 | NUR ---
PT RESTING IN BED. BACK FROM CT. IVF INFUSING WITH NO PROBLEM. NO C/O AT THIS TIME. CALL LIGHT IN REACH.
--- NOTE | 2019-09-23 12:41 | NUR ---
DR. TEJADA CALLED AWARE OF CT. ORDERS TAKEN AND REVIEWED.
--- NOTE | 2019-09-23 12:41 | NUR ---
DR. CONNOR CALLED AWARE OF CONSULT. HE WILL COME SEE HER.
--- NOTE | 2019-09-23 14:00 | NUR ---
RESTING IN BED. NO C/O AT THIS TIME. IVF INFUSING WITH NO PROBLEM. CALL LIGHT IN REACH.
--- NOTE | 2019-09-23 15:10 | NUR ---
PT C/O BACK PAIN, RATES PAIN 5 ON PAIN SCALE 0-10. MEDICATED WITH DILAUDID IV PER PRN ORDER, SEE EMAR. CALL LIGHT IN REACH. [id number]. SEE SHIFT ASSESSMENT.
[2019-09-23 16:00] VITALS: BP 141/75
--- NOTE | 2019-09-23 16:03 | NUR ---
PATIENT INSTRUCTED ON INCENTIVE SPIROMETRY USE.
--- NOTE | 2019-09-23 16:15 | NUR ---
PT RESTING IN BED WITH VISITORS AT HER SIDE. NO C/O AT THIS TIME. STATES PAIN MEDICATION HELPS. CALL LIGHT IN REACH.
--- NOTE | 2019-09-23 17:30 | NUR ---
RESTING IN BED WITH VISITOR AT HER SIDE. RESP-EASY AND REGULAR. NO C/O AT THIS TIME. CALL LIGHT IN REACH.
--- NOTE | 2019-09-23 20:13 | NUR ---
PATIENT IS RESTING IN BED WITH EASY AND REGULAR RESPERS ON ROOM AIR. ASSESSMENT IS COMPLETE WITH NO C/O OR S/S OF DISTRESS NOTED AT THIS TIME. BED IS LOW, LOCKED, AND CALL LIGHT IS WITHIN REACH. WILL CONTINUE TO MONITOR. Neurological: AAOX3 Respiratory: ROOM AIR, NONLABORED Breath sounds: CLEAR T/O Cough: NONE NOTED Cardiovascular: HRR, DENIES CP/PRESSURE, NO EDEMA, PPP Gastrointestinal: NORMOACTIVE X4 QUADS, DENIES N/V/D/C, SOFT, TENDER TO PALPATION UPPER QUADRANT, OBESE Genito/Urinary: DENIES DYSURIA Musculoskeketal: AMBULATORY, SKIN INTACT WENDY PORTER
[2019-09-24] VITALS: BP 127/60
--- NOTE | 2019-09-24 01:49 | NUR ---
PATIENT IS SLEEPING WITH EASY AND REGULAR RESPERS ON ROOM AIR. CALL LIGHT IS WITHIN REACH.
--- NOTE | 2019-09-24 07:10 | NUR ---
ARRIVED ON SHIFT, INTRODUCED TO PATIENT, WHITE BOARD UPDATED. NO NEEDS VOICED AT THIS TIME.
--- NOTE | 2019-09-24 07:36 | NUR ---
Shift chart check completed.
[2019-09-24 08:00] VITALS: BP 133/71
[2019-09-24] MEDS ORDERED: Lantus SC (08:47)
[2019-09-24] MEDS ORDERED: VITAMIN E400 UNI3 PO (08:47)
[2019-09-24] MEDS ORDERED: GEMFIBROZIL600 MG PO (08:47)
--- NOTE | 2019-09-24 10:08 | NUR ---
Discharge instructions reviewed with patient/family. Patient receptive and verbalizes understanding. Follow-up care arranged. Written instructions given to patient/family. WRITTEN PERSCRIPTIONS GIVEN, IV REMOVED, STRESSED IMPORTANCE OF TAKING ALL MEDICATIONS ORDERED, AND KEEP ALL APPOINTMENTS. PATIENT DECLINED W/C FOR DISCHARGE. VANESA SMITH
[2019-09-24 10:50] LABS: BASO # 0.1 10*3/uL (0.0-0.1); BASO % 0.7 % (0.0-1.0); EOS # 0.4 10*3/uL (0.0-0.4); EOS % 3.5 % (1.0-4.0); HEMOGLOBIN 12.8 g/dl (12.0-16.0); LYMPH # 1.6 10*3/uL (1.3-4.4); LYMPH % 15.8 % (27.0-41.0); MEAN CELL VOLUME 87.1 fl (81.0-99.0); MEAN CORPUSCULAR HGB 27.9 pg (27.0-31.0); MEAN PLATELET VOLUME 9.6 fl (9.6-12.3); MONO # 0.6 10*3/uL (0.1-1.0); NEUT # 7.2 10*3/uL (2.3-7.9); PLATELET COUNT AUTOMATED 375 10*3/uL (130-400); RED BLOOD COUNT 4.59 10*6/uL (4.10-5.10); RED CELL DISTRI WIDTH 12.5 % (0-14.5); WHITE BLOOD COUNT 9.9 10*3/uL (4.8-10.8)
[2019-09-24 11:01] LABS: ALBUMIN 2.7 gm/dl (3.1-4.5); ALKALINE PHOSPHATASE 61 U/L (45-117); BUN 5 mg/dl (7-24); CHLORIDE 105 mmol/L (98-107); CREATININE 0.61 mg/dL (0.55-1.02); POTASSIUM 3.6 mmol/L (3.5-5.1); SGOT/AST 34 IU/L (3-35); SGPT/ALT 29 U/L (12-78); SODIUM 137 mmol/L (136-145); TOTAL PROTEIN 7.6 gm/dL (6.4-8.2)
== END 2019-09-24 10:08 | disposition home or self-care (01) | DRG 282 ==
LOC: ED 08:54 → EDHOLD 11:23 → 5E 12:02
PROVIDERS: Emergency Medicine; ADMIT Internal Medicine
DX: K85.90 Acute pancreatitis without necrosis or infection, unspecified (principal); E78.2 Mixed hyperlipidemia; J98.11 Atelectasis; K76.0 Fatty (change of) liver, not elsewhere classified; E78.1 Pure hyperglyceridemia; E11.9 Type 2 diabetes mellitus without complications; E66.01 Morbid (severe) obesity due to excess calories; K80.20 Calculus of gallbladder without cholecystitis without obstruction; Z79.4 Long term (current) use of insulin; Z68.41 Body mass index [BMI] 40.0-44.9, adult; Z82.0 Family history of epilepsy and other diseases of the nervous system; Z88.8 Allergy status to other drugs, medicaments and biological substances

== ENCOUNTER 2020-03-27 17:18 | Inpatient (IN) | payer OTHER ==
[~2020-03-27] VITALS: Ht 165.1 cm; Wt 109.5 kg
[~2020-03-27 17:18] MED LIST changes: +Lantus SC; +VITAMIN E400 UNI3 PO
[2020-03-27 17:29] VITALS: BP 149/95
--- NOTE | 2020-03-27 17:38 | NUR ---
PT PROVIDED URINE CUP. STATES UNABLE TO VOID AT THIS TIME
[2020-03-27 18:17] LABS: BASO # 0.1 10*3/uL (0.0-0.1); BASO % 0.5 % (0.0-1.0); EOS # 0.1 10*3/uL (0.0-0.4); EOS % 0.7 % (1.0-4.0); HEMATOCRIT 41.4 % (37.0-47.0); LYMPH % 14.3 % (27.0-41.0); MEAN CELL VOLUME 81.3 fl (81.0-99.0); MEAN CORPUSCULAR HGB 29.7 pg (27.0-31.0); MEAN CORPUSCULAR HGB CONC 36.5 g/dl (33.0-37.0); MEAN PLATELET VOLUME 9.5 fl (9.6-12.3); MONO # 0.6 10*3/uL (0.1-1.0); MONO % 4.4 % (3.0-9.0); NEUT # 11.3 10*3/uL (2.3-7.9); NEUT % 79.5 % (47.0-73.0); PLATELET COUNT AUTOMATED 404 10*3/uL (130-400); RED BLOOD COUNT 5.09 10*6/uL (4.10-5.10); RED CELL DISTRI WIDTH 12.5 % (0-14.5); WHITE BLOOD COUNT 14.2 10*3/uL (4.8-10.8)
--- NOTE | 2020-03-27 18:27 | NUR ---
PT STILL UNABLE TO PROVIDE URINE. FLUIDS RUNNING. SIDERAILS UP X2, CALL LIGHT WITHIN REACH
[2020-03-27 18:53] LABS: ALBUMIN 3.4 gm/dl (3.1-4.5); ALKALINE PHOSPHATASE 64 U/L (45-117); BUN 8 mg/dl (7-24); CHLORIDE 102 mmol/L (98-107); CREATININE 0.71 mg/dL (0.55-1.02); SGOT/AST 25 IU/L (3-35); SGPT/ALT 34 U/L (12-78); SODIUM 135 mmol/L (136-145); TOTAL PROTEIN 8.7 gm/dL (6.4-8.2)
[2020-03-27 18:57] LABS: LIPASE 5360 U/L (73-393)
--- NOTE | 2020-03-27 19:20 | NUR ---
VERBAL CONSENT FROM JUANI SEGURA TO ORDER PT 0.5MG OF DILAUDID
--- NOTE | 2020-03-27 19:50 | NUR ---
PT GAVE ME PERMISSION TO SPEAK TO HER GRANDMOTHER, SHAHRAM, ABOUT HER CURRENT CONDITION AND TREATMENTS
--- NOTE | 2020-03-27 19:56 | NUR ---
PT STATES SOME PAIN RELIEF FROM DILAUDID
[2020-03-27 20:10] VITALS: BP 143/79
[2020-03-27 20:58] LABS: HDL CHOLESTEROL 38 mg/dl (40-60); TRIGLYCERIDES > 4000 mg/dl (<150)
[2020-03-27 20:59] LABS: CHOLESTEROL 422 mg/dL (<200)
[2020-03-27 21:01] LABS: ETHYL ALCOHOL < 3.0 mg/dl (<3)
[2020-03-27 21:05] VITALS: BP 141/88
--- NOTE | 2020-03-27 21:05 | NUR ---
Time: 2104 A 19 year old FEMALE admitted to 5E under services of DR. VALERIE RODAS,IRON Denny Pt. arrived via bed from ER. Chief complaint: ABDOMINAL PAIN/PANCREATITIS. NEMO MATAMOROS
[2020-03-27 21:07] LABS: BILIRUBIN NEGATIVE (NEGATIVE); BLOOD 1+ (NEGATIVE); CLARITY CLEAR (CLEAR); COLOR YELLOW (YELLOW); GLUCOSE 3+ (NEGATIVE); KETONE 3+ (NEGATIVE); LEUKO ESTERASE TRACE (NEGATIVE); NITRITE NEGATIVE (NEGATIVE); PH 6.5 (5.0-9.0); SPECIFIC GRAVITY 1.015 (1.005-1.030); UROBILINOGEN 0.2 E.U./dl (0.2-1.0)
[2020-03-27 21:09] LABS: RBC 0-2 rbc/hpf (0-2)
[2020-03-27 21:10] LABS: BACTERIA 1+; EPITHELIAL CELLS 41-50; WBC 16-20 wbc/hpf (0-5)
--- NOTE | 2020-03-27 21:50 | NUR ---
CALLED TO VERIFY IF OKAY FOR PATIENT TO HAVE 16OZ WATER PRIOR TO CT SCAN.
--- NOTE | 2020-03-27 22:00 | NUR ---
CALLED FOR CONSULT STATED HE WILL SEE AND EVALUATE PATIENT IN THE MORNING
--- NOTE | 2020-03-27 22:20 | NUR ---
ZOFRAN GIVEN FOR NAUSEA, DILAUDID GIVEN FOR PAIN RATED A 8 OUT OF 10 TO THE ABDOMEN
[2020-03-28] VITALS: BP 132/78
--- NOTE | 2020-03-28 03:00 | NUR ---
DILAUDID GIVEN FOR PAIN RATED A 8 OUT OF 10 TO THE ABDOMEN
--- NOTE | 2020-03-28 03:04 | NUR ---
CALLED WITH REPEAT CALCIUM LEVEL OF 8.2. STATED RECHECK IN MORNING
--- NOTE | 2020-03-28 04:00 | NUR ---
DILAUDID MODERATELY EFFECTIVE RATES PAIN LEVEL A 4, ZOFAN EFFECTIVE FOR NAUSEA
--- NOTE | 2020-03-28 04:00 | NUR ---
CALLED DUE TO PATIENT HAVING ST ELEVATION ON MONITOR. STATED DUE TO AGE AND PATIENT NOT HAVING CHEST PAIN, NO ORDERS NEEDED.
--- NOTE | 2020-03-28 05:54 | NUR ---
ZOFRAN GIVEN FOR NAUSEA
[2020-03-28 06:56] LABS: BASO # 0.1 10*3/uL (0.0-0.1); BASO % 0.3 % (0.0-1.0); HEMATOCRIT 47.8 % (37.0-47.0); LYMPH # 0.9 10*3/uL (1.3-4.4); LYMPH % 5.1 % (27.0-41.0); MEAN CELL VOLUME 83.3 fl (81.0-99.0); MEAN CORPUSCULAR HGB 28.9 pg (27.0-31.0); MEAN CORPUSCULAR HGB CONC 34.7 g/dl (33.0-37.0); MEAN PLATELET VOLUME 9.8 fl (9.6-12.3); MONO % 5.7 % (3.0-9.0); NEUT # 15.2 10*3/uL (2.3-7.9); NEUT % 88.4 % (47.0-73.0); RED BLOOD COUNT 5.74 10*6/uL (4.10-5.10); RED CELL DISTRI WIDTH 13.3 % (0-14.5); WHITE BLOOD COUNT 17.2 10*3/uL (4.8-10.8)
[2020-03-28 06:57] LABS: PLATELET COUNT AUTOMATED 540 10*3/uL (130-400)
--- NOTE | 2020-03-28 07:00 | NUR ---
ZOFRAN EFFECTIVE FOR NAUSEA. DILAUDID GIVEN FOR PAIN RATED A 8 OUT OF 10 TO THE ABDOMEN
[2020-03-28 07:08] LABS: CHLORIDE 95 mmol/L (98-107); CREATININE 0.63 mg/dL (0.55-1.02); POTASSIUM 4.2 mmol/L (3.5-5.1); SODIUM 127 mmol/L (136-145)
[2020-03-28 07:23] LABS: LIPASE 3665 U/L (73-393)
--- NOTE | 2020-03-28 07:32 | NUR ---
DR PADILLA NOTIFIED OF CRITICAL GLUCOSE LEVEL OF 494. NEW ORDERS RECEIVED FOR CALCIUM GLUCONATE VIA IV AT THIS TIME. APPROPRIATE ORDERS PLACED. WILL MEDICATE WHEN AVAILABLE.
[2020-03-28 08:15] LABS: BUN 7 mg/dl (7-24)
--- NOTE | 2020-03-28 08:28 | NUR ---
DR PADILLA CALLS THIS NURSE AND STATES THAT HE WOULD LIKE PT TRANSFERRED TO ICU AT THIS TIME. ORDERS RECEIVED TO OBTAIN Q1H CALCIUM LABS, CONSULTS FOR DR NEIL AND DR CONNOR. PHYSICIAN STATES THAT HE HAS ALREADY SPOKEN WITH DR NEIL. 2 MG IV DILAUDID X1 NOW,THEN CONTINUE Q4H PRN, 8 MG ZOFRAN VIA IV X1 NOW, THEN CONTINUE PRN ORDER. WILL PLACE APPROPRIATE ORDERS AND NOTIFY PATIENT.
--- NOTE | 2020-03-28 08:42 | NUR ---
PT GIVEN 2 MG IV DILAUDID AND 8 MG ZOFRAN VIA IV AT THIS TIME FOR C/O 9/1O ABDOMINAL PAIN AND NAUSEA. WILL MONITOR FOR EFFECTIVENESS. PT SITTING UP IN BED. IV FLUIDS INFUSING. CALL LIGHT IN REACH. SAFETY MEASURES IN PLACE.
--- NOTE | 2020-03-28 09:00 | NUR ---
[employer]el[employer] Sales Associate in to talk to patient. Patient states lives at home with her grandmother. There are 5 steps to get into the home. Physician: Dr. Edmond Rodríguez [facility]acy: [facility] Home health services: none Patient's level of ADLs: INDEPENDENT Patient has working utilities: yes DME: none Follow-up physician's appointment after d/c: she prefers to make her own follow up appt after discharge Does patient want to access PORTAL?: no Discharge plan discussed with patient. She lives at home with her grandmother. She is independent in her ADLs and ambulation. Discussed home health care services and she declines. When medically stable she will be discharged to home. She states her grandmother and her boyfriend will provide transportation on discharge. Will continue to follow for case management needs. KRISTINA MENON
[2020-03-28 09:09] VITALS: BP 138/82
[2020-03-28 09:15] VITALS: BP 131/84
--- NOTE | 2020-03-28 09:15 | NUR ---
PATIENT TRANSFERRED FROM . ALERT AND ORIENTED. TEMP 97.3. BLOOD PRESSURE 131/84. ST PER CM-RATE 120'S. POX 96% 2LNC. LUNGS DIMINISHED/CLEAR. STATES PAIN IS 5/10 ON PAIN SCALE. STATES PAIN IS IN ABDOMEN TO BILATERAL HIPS. STATES PAIN MEDICATION "HELPED ALOT". AT BEDSIDE.
--- NOTE | 2020-03-28 10:00 | NUR ---
NOTIFIED DR CONNOR AT NURSE STATION OF CONSULT FOR PATIENT.
[2020-03-28 10:34] LABS: ABG BASE EXCESS -4.7 mmol/L (-2.0-2.0); ARTERIAL BLOOD GAS PH 7.369 (7.35-7.45)
--- NOTE | 2020-03-28 11:23 | NUR ---
NOTIFIED OF CXR RESULTS. NEW ORDERS RECEIVED.
[2020-03-28 11:32] LABS: ALBUMIN 2.4 gm/dl (3.1-4.5); BILIRUBIN, DIRECT 0.1 mg/dL (0.0-0.2); BUN 7 mg/dl (7-24); CHLORIDE 100 mmol/L (98-107); CREATININE 0.83 mg/dL (0.55-1.02); POTASSIUM 4.2 mmol/L (3.5-5.1); SGOT/AST 29 IU/L (3-35); SGPT/ALT 33 U/L (12-78); SODIUM 129 mmol/L (136-145); TOTAL PROTEIN 7.1 gm/dL (6.4-8.2)
[2020-03-28 11:33] LABS: ALKALINE PHOSPHATASE 50 U/L (45-117)
--- NOTE | 2020-03-28 11:41 | NUR ---
MEDICATED WITH DILAUDED FOR LOWER ABDOMINAL PAIN AND ZOFRAN FOR NAUSEA. PAIN 6-03/14.. IV SITE WITH GOOD BLOOD RETURN.
[2020-03-28 12:00] VITALS: BP 155/92
--- NOTE | 2020-03-28 14:30 | NUR ---
PATIENT TRANSFERRED TO [facility]. TRANSFER PACKET SENT WITH AMBULANCE CREW. FAMILY AWARE OF TRANSFER. CALLED TO GIVE REPORT TO JOSIE FOR PATIENT TO GO TO ROOM 423 BED A. WHILE GIVING REPORT JOSIE STATED THAT DUE TO PATIENT BEING ON INSULIN GTT PATIENT WOULD HAVE TO GO TO AN ICU BED. THEIR CHARGE NURSE TALKED TO THIS RN AND HAD PATIENT DIVERT TO THE ER DUE TO HAVING TO MAKE ARRANGEMENTS FOR AN ICU BED. [facility] CONTACTED AND NOTIFIED OF THIS.
== END 2020-03-28 14:30 | disposition short-term general hospital (02) | DRG 282 ==
LOC: ED 17:18 → ICCU 19:59 → EDHOLD 19:59 → 5E 19:59 → ICCU 03-28 08:50
PROVIDERS: Internal Medicine Critical Care Medicine; Internal Medicine Nephrology; Physician Assistant; ADMIT Internal Medicine
DX: K85.90 Acute pancreatitis without necrosis or infection, unspecified (principal); E83.51 Hypocalcemia; K76.0 Fatty (change of) liver, not elsewhere classified; E11.65 Type 2 diabetes mellitus with hyperglycemia; E78.2 Mixed hyperlipidemia; J96.01 Acute respiratory failure with hypoxia; E78.1 Pure hyperglyceridemia; J98.11 Atelectasis; E66.01 Morbid (severe) obesity due to excess calories; Z79.4 Long term (current) use of insulin; Z91.041 Radiographic dye allergy status; Z68.41 Body mass index [BMI] 40.0-44.9, adult; R65.11 Systemic inflammatory response syndrome (SIRS) of non-infectious origin with acute organ dysfunction